=== PATIENT | male | born 1970 | race Two or more races ===

== ENCOUNTER 2021-07-07 22:10 | Emergency (ER) | payer SELFPAY ==
[~2021-07-07] VITALS: Ht 170.2 cm; Wt 81.6 kg
[2021-07-08] MEDS ORDERED: cefTRIAXone SOD 1,000 MG VL IM ONE (01:30)
[2021-07-08 02:00] VITALS: BP 150/98
== END 2021-07-08 02:23 | disposition home or self-care (01) ==
LOC: ER 22:11
DX: S80.211A Abrasion, right knee, initial encounter (principal); S60.512A Abrasion of left hand, initial encounter; S60.511A Abrasion of right hand, initial encounter; K21.9 Gastro-esophageal reflux disease without esophagitis; W05.2XXA Fall from non-moving motorized mobility scooter, initial encounter; Y93.55 Activity, bike riding; Y92.488 Other paved roadways as the place of occurrence of the external cause; Y99.8 Other external cause status
CPT/HCPCS: 73030; 73560; 96372; 99284; J0696